=== PATIENT | female | born 1995 | race African-American/Black ===

== ENCOUNTER 2017-04-17 16:29 | Emergency (ER) | payer MEDICAID, OTHER ==
[~2017-04-17] VITALS: Ht 170.2 cm; Wt 73.0 kg
[~2017-04-17 16:29] MED LIST: ALBU17I INH; CELE40TA PO; IBUP600 PO; METH36 PO; VENTAER INH
[2017-04-17 16:30] VITALS: BP 117/80; PULSE 85; RESP 13; TEMP 99; O2SAT 97
--- NOTE | 2017-04-17 17:44 | PD ---
HPI . Generalized abdominal pain Chief Complaint: Abdominal Pain Time Seen by Provider: 17:28 Travel History International Travel<30 days: No Contact w/Intl Traveler<30days: No Traveled to known affect area: No History of Present Illness HPI Patient presents complaining with a 2 day history of generalized abdominal pain. It is rated 5/10 and has no modifying factors. It is associated with some nausea. No vomiting or diarrhea. She has had a subjective fever. She denies any urinary tract symptoms such as dysuria, frequency or urgency. She is also complaining with amenorrhea since February. She states that she has taken several home test and some have been positive while others have been negative. PFSH Past Medical History Asthma: Yes Cancer: No Developmental Delay: No Diabetes: No Diminished Hearing: No Psychiatric: Yes Respiratory: Yes (ASTHMA) Immunizations Current: Yes Seizures: No Thyroid Disease: No Ulcer: No ?: Unknown LMP: 03/10/17 Past Surgical History Ear Surgery: Yes Tonsillectomy: Yes (ADNOIDS) Tympanostomy Tube: Yes Social History Alcohol Use: No Tobacco Use: No Substance Use: No Allergies-Medications (Allergen,Severity, Reaction): Coded Allergies: No Known Allergies (Verified , 07/26/15) Reported Meds & Prescriptions Reported Meds & Active Scripts Active Motrin 600 Mg Tab (Ibuprofen) 600 Mg Tab 600 Mg PO Q6H PRN Concerta (Methylphenidate HCl) 36 Mg Tabcr 36 Mg PO DAILY Concerta (Methylphenidate HCl) 36 Mg Tabcr 36 Mg PO DAILY Celexa (Citalopram Hydrobromide) 40 Mg Tab 40 Mg PO 1/2TAB PO QD X7D Proventil Mdi (Albuterol Sulfate) 17 Gm Aero 2 Puff INH Q4HPRN Reported Ventolin Hfa (Albuterol Sulfate) 18 Gm Aero 2 Puff INH Q4HPRN * SHAKE WELL BEFORE USE * Review of Systems Except as stated in HPI: all other systems reviewed are Neg General / Constitutional: Positive: Fever, Chills Gastrointestinal: Positive: Nausea, Abdominal Pain, No: Vomiting, Diarrhea Genitourinary: Positive: Other (amenorrhea), No: Urgency, Frequency, Dysuria Physical Exam Narrative GENERAL: This patient is awake and alert and does not appear to be in any distress. SKIN: warm/dry. HEAD: Normocephalic. Atraumatic. EYES: Pupils equal and round. No scleral icterus. No injection or drainage. ENT: No nasal bleeding or discharge. Mucous membranes pink and moist. NECK: Trachea midline. Full range of motion without pain.. CARDIOVASCULAR: Regular rate and rhythm. Heart sounds normal. RESPIRATORY: No accessory muscle use. Clear to auscultation. Breath sounds equal bilaterally. GASTROINTESTINAL: Abdomen soft. Nontender. Bowel sounds present. Abdomen does appear to be distended. I do not feel a suprapubic mass. MUSCULOSKELETAL: No obvious deformities. NEUROLOGICAL: Awake and alert. No obvious cranial nerve deficits. Motor grossly within normal limits. Normal speech. PSYCHIATRIC: Appropriate mood and affect; insight and judgment normal. Data Data Last Documented VS Vital Signs Date Time Temp Pulse Resp B/P (MAP) Pulse Ox O2 Delivery O2 Flow Rate FiO2 04/17/17 16:30 99.0 85 13 117/80 (92) 97 Orders Orders Basic Metabolic Panel (Bmp) (04/17/17 17:34) Complete Blood Count With Diff (04/17/17 17:34) Urinalysis - C+S If Indicated (04/17/17 17:34) Iv Access Insert/Monitor (04/17/17 17:34) Morphine Inj (Morphine Inj) (04/17/17 17:45) Ondansetron Inj (Zofran Inj) (04/17/17 17:45) Sodium Chloride 0.9% Flush (Ns Flush) (04/17/17 17:45) Ed Urine Pregnancytest Poc (04/17/17 17:34) Ed Poc Ultrasound (04/17/17 17:34) Labs Laboratory Tests Test 04/17/17 17:50 White Blood Count 5.3 TH/MM3 Red Blood Count 4.11 MIL/MM3 Hemoglobin 12.5 GM/DL Hematocrit 37.6 % Mean Corpuscular Volume 91.5 FL Mean Corpuscular Hemoglobin 30.3 PG Mean Corpuscular Hemoglobin Concent 33.1 % Red Cell Distribution Width 12.3 % Platelet Count 242 TH/MM3 Mean Platelet Volume 9.7 FL Neutrophils (%) (Auto) 34.0 % Lymphocytes (%) (Auto) 51.8 % Monocytes (%) (Auto) 10.5 % Eosinophils (%) (Auto) 3.3 % Basophils (%) (Auto) 0.4 % Neutrophils # (Auto) 1.8 TH/MM3 Lymphocytes # (Auto) 2.7 TH/MM3 Monocytes # (Auto) 0.6 TH/MM3 Eosinophils # (Auto) 0.2 TH/MM3 Basophils # (Auto) 0.0 TH/MM3 CBC Comment DIFF FINAL Differential Comment Urine Color YELLOW Urine Turbidity CLEAR Urine pH 5.5 Urine Specific [place] 1.024 Urine Protein NEG mg/dL Urine Glucose (UA) NEG mg/dL Urine Ketones NEG mg/dL Urine Occult Blood NEG Urine Nitrite NEG Urine Bilirubin NEG Urine Urobilinogen LESS THAN 2.0 MG/DL Urine Leukocyte Esterase NEG Urine WBC 1 /hpf Urine Squamous Epithelial Cells 2 /hpf Urine Mucus FEW /lpf Microscopic Urinalysis Comment CULT NOT INDICATED Blood Urea Nitrogen 15 MG/DL Creatinine 0.66 MG/DL Random Glucose 70 MG/DL Calcium Level 8.9 MG/DL Sodium Level 139 MEQ/L Potassium Level 4.0 MEQ/L Chloride Level 106 MEQ/L Carbon Dioxide Level 26.9 MEQ/L Anion Gap 6 MEQ/L Estimat Glomerular Filtration Rate 138 ML/MIN [facility] Medical Decision Making Medical Screen Exam Complete: Yes Emergency Medical Condition: Yes Differential Diagnosis Differential diagnosis of abdominal pain includes but is not limited to gastritis, pancreatitis, hepatitis, gastroenteritis, gallbladder disease, constipation, urinary retention, UTI, peptic ulcer disease, diverticulitis or appendicitis Narrative Course This patient presents with generalized abdominal pain associated with nausea. She is also reporting a 2 month history of amenorrhea. test is negative. UA is negative. CBC & BMP Diagram 04/17/17 17:50 Calcium Level 8.9 The history, exam, diagnostic testing, and current condition do not suggest any significant pathology to warrant further testing, continued ED treatment, admission, or surgical evaluation at this point. No EMC was found. The patient 's condition is stable and appropriate for discharge. Procedures Procedure Narrative Emergency Department Pelvic ultrasound was performed with patient consent. The curvilinear probe was used in the transverse and sagittal views within the suprapubic region revealing no intrauterine . Diagnosis Primary Impression: Abdominal pain Qualified Codes: R10.84 - Generalized abdominal pain Patient Instructions: Abdominal Pain (ED), General Instructions Additional Instructions: See your primary care physician for further evaluation is needed. Disposition: 01 DISCHARGE HOME Condition: Stable Maren Hedrick MD Apr 17, 2017 17:44
[2017-04-17] MEDS ORDERED: ONDANSETRON HCL 4 MG/2 ML VIAL IVP ONE (17:45)
[2017-04-17] MEDS ORDERED: MORPHINE SULFATE 4 MG/ML INJ IV PUSH ONE (17:45)
[2017-04-17] MEDS ORDERED: SODIUM CHLORIDE 0.9% FLUSH 10 ML FLUSH IV FLUSH PRN (17:45)
[2017-04-17 18:21] LABS: BLOOD, URINE NEG (NEG); COMMENT (UR) CULT NOT INDICATED; CULTURE IF INDICATED CULT NOT INDICATED; GLUCOSE,URINE NEG (NEG); KETONE, URINE NEG (NEG); MUCUS URINE FEW /lpf (OCC); NITRITE,URINE NEG (NEG); PH, URINE 5.5 (5.0-8.5); SQUAMOUS EPITHELIAL CELL URINE 2 /hpf (0-5); URINE COLOR YELLOW (YELLW/STRAW)
[2017-04-17 18:26] LABS: AUTOMATED NEUTROPHIL # 1.8 TH/MM3 (1.8-7.7); BASOPHIL % 0.4 % (0.0-2.0); EOSINOPHIL # 0.2 TH/MM3 (0-0.4); EOSINOPHIL % 3.3 % (0.0-4.0); HEMATOCRIT 37.6 % (35.0-46.0); HEMO FLAGS DIFF FINAL; LYMPH % 51.8 % (9.0-44.0); LYMPHOCYTE # 2.7 TH/MM3 (1.0-4.8); MEAN CELL VOLUME 91.5 FL (80.0-100.0); MEAN CORPUSCULAR HEMOGLOBIN 30.3 PG (27.0-34.0); MEAN CORPUSCULAR HGB CONC 33.1 % (32.0-36.0); MONO % 10.5 % (0.0-8.0); PLATELET COUNT 242 TH/MM3 (150-450); RED BLOOD COUNT 4.11 MIL/MM3 (4.00-5.30); RED CELL DISTRIBUTION WIDTH 12.3 % (11.6-17.2); WHITE BLOOD COUNT 5.3 TH/MM3 (4.0-11.0)
[2017-04-17 18:47] LABS: BICARBONATE 26.9 MEQ/L (21.0-32.0)
== END 2017-04-17 19:37 | disposition home or self-care (01) ==
LOC: NEPD 16:29
DX: R10.84 Generalized abdominal pain (principal)
CPT/HCPCS: 80048; 81001; 84703; 85025; 96374; 96375; 99285; J2270; J2405

== ENCOUNTER 2017-06-14 00:34 | Emergency (ER) | payer OTHER, MEDICAID ==
[~2017-06-14] VITALS: Ht 170.2 cm; Wt 73.0 kg
[2017-06-14 00:43] VITALS: BP 149/100; PULSE 90; RESP 20; TEMP 99; O2SAT 100
[2017-06-14] MEDS ORDERED: SODIUM CHLOR 0.9% 1000 ML INJ 1,000 ML IV SCH (01:15)
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
[2017-06-14 02:07] LABS: AUTOMATED NEUTROPHIL # 6.5 TH/MM3 (1.8-7.7); BASOPHIL # 0.1 TH/MM3 (0-0.2); BASOPHIL % 0.7 % (0.0-2.0); EOSINOPHIL # 0.3 TH/MM3 (0-0.4); EOSINOPHIL % 3.2 % (0.0-4.0); HEMATOCRIT 35.6 % (35.0-46.0); HEMO FLAGS DIFF FINAL; LYMPH % 21.2 % (9.0-44.0); MEAN CELL VOLUME 90.1 FL (80.0-100.0); MEAN CORPUSCULAR HEMOGLOBIN 30.4 PG (27.0-34.0); MEAN CORPUSCULAR HGB CONC 33.8 % (32.0-36.0); MONO % 5.8 % (0.0-8.0); NEUT % 69.1 % (16.0-70.0); PLATELET COUNT 245 TH/MM3 (150-450); RED BLOOD COUNT 3.95 MIL/MM3 (4.00-5.30); RED CELL DISTRIBUTION WIDTH 12.5 % (11.6-17.2); WHITE BLOOD COUNT 9.4 TH/MM3 (4.0-11.0)
[2017-06-14 02:27] LABS: ALT (GPT) 26 U/L (9-42); ANION GAP 7 MEQ/L (5-15); AST (GOT) 16 U/L (16-38); BICARBONATE 25.6 MEQ/L (21.0-32.0); BLOOD UREA NITROGEN 21 MG/DL (7-18); CHLORIDE 107 MEQ/L (98-107); GLOMERULAR FILTRATION RATE 157 ML/MIN (>89); POTASSIUM 3.9 MEQ/L (3.5-5.1); SODIUM (NA) 140 MEQ/L (136-145)
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
[2017-06-14 02:29] LABS: ALKALINE PHOSPHATASE 75 U/L (45-117); TOTAL BILIRUBIN ADULT 0.2 MG/DL (0.2-1.0)
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
[2017-06-14 02:35] LABS: PROTHROMBIN TIME - PATIENT 10.5 SEC (9.8-11.6)
[2017-06-14 03:00] VITALS: BP 123/75; PULSE 82; RESP 18; O2SAT 99
[2017-06-14 03:08] LABS: BACTERIA, URINE RARE /hpf; BLOOD, URINE NEG (NEG); COMMENT (UR) CULT NOT INDICATED; CULTURE IF INDICATED CULT NOT INDICATED; GLUCOSE,URINE NEG (NEG); KETONE, URINE 10 mg/dL (NEG); MUCUS URINE FEW /lpf (OCC); NITRITE,URINE NEG (NEG); SQUAMOUS EPITHELIAL CELL URINE 2 /hpf (0-5); URINE COLOR YELLOW (YELLW/STRAW)
[2017-06-14] MEDS ORDERED: CYCL5TAB PO (03:22)
[2017-06-14] MEDS ORDERED: ACETAMINOPHEN/HYDROcodone 325 MG/5 MG TAB PO ONE (03:30)
== END 2017-06-14 04:10 | disposition home or self-care (01) ==
LOC: NEPE 00:34
DX: S93.401A Sprain of unspecified ligament of right ankle, initial encounter (principal); M25.532 Pain in left wrist; M54.2 Cervicalgia; J45.909 Unspecified asthma, uncomplicated; R56.9 Unspecified convulsions; V43.62XA Car passenger injured in collision with other type car in traffic accident, initial encounter
CPT/HCPCS: 70450; 71010; 72125; 72170; 73110; 73590; 73610; 80053; 81001; 84703; 85025; 85610; 85730; 96360; 99285; E0113; J7030; L1906; L3908

== ENCOUNTER 2017-07-18 22:21 | Emergency (ER) | payer MEDICAID ==
[~2017-07-18] VITALS: Ht 172.7 cm; Wt 75.0 kg
[~2017-07-18 22:21] MED LIST changes: -ALBU17I INH; -CELE40TA PO; +CYCL5TAB PO; -IBUP600 PO; -METH36 PO; -VENTAER INH
[2017-07-18 22:23] VITALS: BP 123/80; PULSE 90; RESP 20; TEMP 98.7; O2SAT 98
[2017-07-18] MEDS ORDERED: PENICILLIN V POTASSIUM 500 MG TAB PO ONE (22:45)
[2017-07-18] MEDS ORDERED: DEXAMETHASONE 4 MG TAB PO ONE (22:45)
[2017-07-18] MEDS ORDERED: NAPROXEN 500 MG TAB PO ONE (22:45)
[2017-07-18] MEDS ORDERED: PENI500T PO (22:48)
[2017-07-18] MEDS ORDERED: NAPR500T2 PO (22:48)
--- NOTE | 2017-07-18 22:49 | PD ---
HPI Chief Complaint: Oral / Dental Pain or Problem Time Seen by Provider: 22:32 Travel History International Travel<30 days: No Contact w/Intl Traveler<30days: No Traveled to known affect area: No History of Present Illness HPI So 22 year-old woman presents emergent from of left sided tooth pain, swelling, some drainage, some facial swelling, and pain. Pain radiates to the left ear. She has or with Center coming in and feels tenderness there. States she continues to low but of drainage from the area. Feels like there is a knot there. History Past Medical History Medical History: Denies Significant Hx Tetanus Vaccination: Unknown Influenza Vaccination: No LMP: 06/11/17 Social History Alcohol Use: No Tobacco Use: No Allergies-Medications (Allergen,Severity, Reaction): Coded Allergies: aspirin (Unverified Adverse Reaction, Severe, Swelling, 07/18/17) "MY THROAT SWELLED UP" Reported Meds & Prescriptions Reported Meds & Active Scripts Active Flexeril (Cyclobenzaprine HCl) 5 Mg Tab 5 Mg PO TID PRN Review of Systems Except as stated in HPI: all other systems reviewed are Neg Physical Exam Narrative GENERAL: Well-appearing 22 year-old woman, no acute distress. SKIN: Focused skin assessment warm/dry. HEAD: Atraumatic. Normocephalic. EYES: Pupils equal and round. No scleral icterus. No injection or drainage. ENT: No nasal bleeding or discharge. Mucous membranes pink and moist. Good dentition. Dentures in place. On the left lower third molar, only partially visible, no purulent drainage. There is tenderness to percussion there. Some tenderness in the soft tissues also. No discrete palpable abscess. A little bit of facial swelling. TMs normal bilaterally. NECK: Trachea midline. Minimal tender adenopathy. Data Data Last Documented VS Vital Signs Date Time Temp Pulse Resp B/P (MAP) Pulse Ox O2 Delivery O2 Flow Rate FiO2 07/18/17 22:23 98.7 90 20 123/80 (94) 98 Room Air Orders Orders Naproxen (Naprosyn) (07/18/17 22:45) Penicillin V Potassium (Veetids) (07/18/17 22:45) Dexamethasone (Decadron) (07/18/17 22:45) MDM Medical Decision Making Medical Screen Exam Complete: Yes Emergency Medical Condition: Yes Differential Diagnosis Odontalgia, apical abscess, facial infection, other Narrative Course Medical decision making 22 year-old woman presents to the ED with left-sided facial tenderness, appears to have odontogenic pain and infection. Later follow-up with dentistry. Recommend steroids NSAIDs antibiotics. Diagnosis Primary Impression: Pain, dental Additional Instructions: Take anabiotic cyst prescribed. Take naproxen as needed for pain. Follow-up with your dentist in the next one to 2 days for repeat evaluation. Return to the emergency department for any new or worsening symptoms. Med/Other Pt SpecificInfo: Prescription(s) given Scripts Penicillin V Potassium (Penicillin V Potassium) 500 Mg Tab 500 MG PO Q8H for Infection for 10 Days, #30 TAB 0 Refills Prov: Chaz Gtz MD 07/18/17 Naproxen (Naproxen) 500 Mg Tab 500 MG PO BID, #20 TAB 0 Refills Prov: Chaz Gtz MD 07/18/17 Disposition: 01 DISCHARGE HOME Condition: Stable Chaz Gtz MD Jul 18, 2017 22:49
== END 2017-07-18 22:56 | disposition home or self-care (01) ==
LOC: NEPD 22:21
DX: K08.89 Other specified disorders of teeth and supporting structures (principal); Z88.6 Allergy status to analgesic agent; Z79.899 Other long term (current) drug therapy
CPT/HCPCS: 99284; J8540

== ENCOUNTER 2017-11-23 09:11 | Emergency (ER) | payer MEDICAID ==
[~2017-11-23] VITALS: Ht 170.2 cm; Wt 75.0 kg
[~2017-11-23 09:11] MED LIST changes: +NAPR500T2 PO; +PENI500T PO
[2017-11-23 09:16] VITALS: BP 123/71; PULSE 85; RESP 20; TEMP 97.9; O2SAT 100
[2017-11-23] MEDS ORDERED: VENTAER INH (09:26)
--- NOTE | 2017-11-23 10:07 | PD ---
HPI Chief Complaint: Chest Pain Time Seen by Provider: 09:36 Travel History International Travel<30 days: No Contact w/Intl Traveler<30days: No Traveled to known affect area: No History of Present Illness HPI Patient presents to the emergency department complaining of chest pain and headache. States the last time this happened was last Wednesday and she had recurrence of the symptoms today. Headache is described as being on the left side with blurry vision and some photophobia. She denies rash, neck pain, states that the left side feels weak. Chest pain started while she was at work : Described as being left-sided, intermittent, 1 hour in duration, nonradiating , alleviated somewhat when she "calms down", no aggravating factors. Multiple deaths in the family over the past few months which is causing stress to the patient. She reports subjective fever, cough, nausea, but denies chills, vomiting, edema, recent travel. Last menstrual period was last month. PFSH Past Medical History Asthma: Yes Cancer: No Cardiovascular Problems: No Developmental Delay: No Diabetes: No Diminished Hearing: No Psychiatric: Yes Respiratory: Yes Immunizations Current: Yes Seizures: Yes Thyroid Disease: No Ulcer: No ?: Unknown LMP: 10/10/17 Past Surgical History Ear Surgery: Yes Tonsillectomy: Yes (ADNOIDS) Tympanostomy Tube: Yes Family History Family Myocardial Infarction: Yes Social History Alcohol Use: No Tobacco Use: No Substance Use: No Allergies-Medications (Allergen,Severity, Reaction): Coded Allergies: prochlorperazine (Verified Allergy, Intermediate, Confusion, 11/23/17) aspirin (Unverified Adverse Reaction, Severe, Swelling, 07/18/17) "MY THROAT SWELLED UP" Reported Meds & Prescriptions Reported Meds & Active Scripts Active Reported Ventolin Hfa 18 GM Inh (Albuterol Sulfate) 90 Mcg/Act Aer 2 Puff INH Q4-6H PRN Review of Systems Except as stated in HPI: all other systems reviewed are Neg Physical Exam Narrative GENERAL: No acute distress. SKIN: Focused skin assessment warm/dry. HEAD: Atraumatic. Normocephalic. EYES: Ocular muscles intact bilaterally. No scleral icterus. No injection or drainage. ENT: No nasal bleeding or discharge. Mucous membranes pink and moist. NECK: Trachea midline. No JVD. Supple, full range of motion. CARDIOVASCULAR: Regular rate and rhythm. No murmur appreciated. Left chest wall tender to palpation (reproducible pain). RESPIRATORY: No accessory muscle use. Clear to auscultation. Breath sounds equal bilaterally. GASTROINTESTINAL: Abdomen soft, non-tender, nondistended. Hepatic and splenic margins not palpable. MUSCULOSKELETAL: No obvious deformities. No clubbing. No cyanosis. No edema. NEUROLOGICAL: Awake and alert. No obvious cranial nerve deficits. Motor grossly within normal limits. Normal speech. PSYCHIATRIC: Appropriate mood and affect; insight and judgment normal. Data Data Last Documented VS Vital Signs Date Time Temp Pulse Resp B/P (MAP) Pulse Ox O2 Delivery O2 Flow Rate FiO2 11/23/17 11:03 64 15 124/86 (99) 99 Room Air 11/23/17 09:16 97.9 Orders Orders Complete Blood Count With Diff (11/23/17 10:01) Comprehensive Metabolic Panel (11/23/17 10:01) Chest, Single Ap (11/23/17 10:01) Ct Brain W/O Iv Contrast(Rout) (11/23/17 10:01) Iv Access Insert/Monitor (11/23/17 10:01) Ecg Monitoring (11/23/17 10:01) Oximetry (11/23/17 10:01) Ed Urine Pregnancytest Poc (11/23/17 10:01) Electrocardiogram (11/23/17 10:01) Ckmb (Isoenzyme) Profile (11/23/17 10:01) D-Dimer (11/23/17 10:01) Prothrombin Time / Inr (Pt) (11/23/17 10:01) Act Partial Throm Time (Ptt) (11/23/17 10:01) Troponin I (11/23/17 10:01) Prochlorperazine Inj (Compazine Inj) (11/23/17 10:15) Sodium Chlor 0.9% 1000 Ml Inj (Ns 1000 M (11/23/17 10:15) Diphenhydramine Inj (Benadryl Inj) (11/23/17 11:00) CKMB (11/23/17 09:37) CKMB% (11/23/17 09:37) Ed Discharge Order (11/23/17 12:28) Labs Laboratory Tests Test 11/23/17 09:37 White Blood Count 5.3 TH/MM3 Red Blood Count 4.29 MIL/MM3 Hemoglobin 12.3 GM/DL Hematocrit 37.9 % Mean Corpuscular Volume 88.5 FL Mean Corpuscular Hemoglobin 28.6 PG Mean Corpuscular Hemoglobin Concent 32.3 % Red Cell Distribution Width 12.9 % Platelet Count 299 TH/MM3 Mean Platelet Volume 9.6 FL Neutrophils (%) (Auto) 44.1 % Lymphocytes (%) (Auto) 42.0 % Monocytes (%) (Auto) 8.2 % Eosinophils (%) (Auto) 4.6 % Basophils (%) (Auto) 1.1 % Neutrophils # (Auto) 2.3 TH/MM3 Lymphocytes # (Auto) 2.2 TH/MM3 Monocytes # (Auto) 0.4 TH/MM3 Eosinophils # (Auto) 0.2 TH/MM3 Basophils # (Auto) 0.1 TH/MM3 CBC Comment DIFF FINAL Differential Comment Prothrombin Time 10.3 SEC Prothromb Time International Ratio 1.0 RATIO Activated Partial Thromboplast Time 26.0 SEC D-Dimer Quantitative (PE/DVT) LESS THAN 0.19 MG/L FEU Blood Urea Nitrogen 14 MG/DL Creatinine 0.74 MG/DL Random Glucose 69 MG/DL Total Protein 7.9 GM/DL Albumin 4.1 GM/DL Calcium Level 8.9 MG/DL Alkaline Phosphatase 63 U/L Aspartate Amino Transf (AST/SGOT) 43 U/L Alanine Aminotransferase (ALT/SGPT) 27 U/L Total Bilirubin 0.4 MG/DL Sodium Level 139 MEQ/L Potassium Level 4.8 MEQ/L Chloride Level 107 MEQ/L Carbon Dioxide Level 25.8 MEQ/L Anion Gap 6 MEQ/L Estimat Glomerular Filtration Rate 121 ML/MIN Total Creatine Kinase 155 U/L Creatine Kinase MB LESS THAN 0.5 NG/ML Troponin I LESS THAN 0.02 NG/ML MDM Medical Decision Making Medical Screen Exam Complete: Yes Emergency Medical Condition: Yes Interpretation(s) ECG: SR, rate 84, LAE Labs: wnl Last Impressions Head CT 11/23/17 1001 Signed Impressions: Service Date/Time: Thursday, November 23, 2017 10:26 - CONCLUSION: Normal examination. Cristino Edwards MD Chest X-Ray 11/23/17 1001 Signed Impressions: Service Date/Time: Thursday, November 23, 2017 10:04 - CONCLUSION: Normal examination. Cristino Edwards MD Differential Diagnosis Intracranial abnormality, migraine headache, ACS, musculoskeletal chest pain, PE Narrative Course Patient presents to the emergency department complaining of headache and chest pain we will check head CT, urine , CBC, chemistry, cardiac enzymes, coags and d-dimer, chest x-ray, EKG. Will give patient a liter of fluids and 10 mg IV Compazine. 1100: Patient received Compazine and said that she felt flushed and short of breath. Given Benadryl 25 mg IV. No tongue or facial swelling or rash. Patient declined Toradol for pain. Attempted to speak patient's primary care physician at [facility], but was transferred to an answering machine. 1230: Patient reports feeling better, states she just needs to get some rest. Diagnosis Primary Impression: Chest pain Qualified Codes: R07.9 - Chest pain, unspecified Additional Impression: Headache Qualified Codes: R51 - Headache Patient Instructions: Acute Headache (ED), Chest Pain (ED), General Instructions Departure Forms: Tests/Procedures, Work Release Enter return to work date: November 25, 2017 Additional Instructions: 1. Follow-up with primary care doctor in 24-48 hours. 2. Tylenol Motrin as needed for headache and/or chest pain. 3. Return to the emergency department immediately for fever, vomiting, shortness of breath, chest pain that responded to medication, numbness or tingling, slurred speech, abnormal gait, or for any new/worsening/worsening symptoms. Disposition: 01 DISCHARGE HOME Condition: Stable Denice Courtney MD November 23, 2017 10:07
[2017-11-23] MEDS ORDERED: PROCHLORPERAZINE INJ 10 MG/2 ML VIAL IV PUSH ONE (10:15)
[2017-11-23] MEDS ORDERED: SODIUM CHLOR 0.9% 1000 ML INJ 1,000 ML IV ONE (10:15)
[2017-11-23 10:19] LABS: AUTOMATED NEUTROPHIL # 2.3 TH/MM3 (1.8-7.7); BASOPHIL # 0.1 TH/MM3 (0-0.2); BASOPHIL % 1.1 % (0.0-2.0); EOSINOPHIL # 0.2 TH/MM3 (0-0.4); EOSINOPHIL % 4.6 % (0.0-4.0); HEMATOCRIT 37.9 % (35.0-46.0); HEMOGLOBIN 12.3 GM/DL (11.6-15.3); LYMPHOCYTE # 2.2 TH/MM3 (1.0-4.8); MEAN CELL VOLUME 88.5 FL (80.0-100.0); MEAN CORPUSCULAR HEMOGLOBIN 28.6 PG (27.0-34.0); MEAN CORPUSCULAR HGB CONC 32.3 % (32.0-36.0); MEAN PLATELET VOLUME 9.6 FL (7.0-11.0); MONO % 8.2 % (0.0-8.0); MONOCYTE # 0.4 TH/MM3 (0-0.9); NEUT % 44.1 % (16.0-70.0); PLATELET COUNT 299 TH/MM3 (150-450); RED BLOOD COUNT 4.29 MIL/MM3 (4.00-5.30); RED CELL DISTRIBUTION WIDTH 12.9 % (11.6-17.2); WHITE BLOOD COUNT 5.3 TH/MM3 (4.0-11.0)
--- NOTE | 2017-11-23 10:24 | RADRPT ---
EXAM DATE/TIME: 11/23/2017 10:04 [facility] COMPARISON: CHEST SINGLE AP, June 14, 2017, 1:25. INDICATIONS : Left upper chest pain radiating into left shoulder. MEDICAL HISTORY : Asthma SURGICAL HISTORY : None. ENCOUNTER: Initial ACUITY: 2 days PAIN SCORE: 8/10 LOCATION: Left chest FINDINGS: A single view of the chest demonstrates the lungs to be symmetrically aerated without evidence of mas s, infiltrate or effusion. The cardiomediastinal contours are unremarkable. Osseous structures are intact. CONCLUSION: Normal examination. Cristino Edwards MD on November 23, 2017 at 10:21 Board Certified Radiologist. This report was verified electronically.
[2017-11-23 10:31] LABS: PROTHROMBIN TIME - PATIENT 10.3 SEC (9.8-11.6)
[2017-11-23 10:32] LABS: D-DIMER LESS THAN 0.19 MG/L FEU (0.00-0.50)
--- NOTE | 2017-11-23 10:37 | RADRPT ---
EXAM DATE/TIME: 11/23/2017 10:26 [facility] COMPARISON: CT BRAIN W/O CONTRAST, June 14, 2017, 2:07. INDICATIONS : Headache, now left side of body feels weaker RADIATION DOSE: 35.34 CTDIvol (mGy) MEDICAL HISTORY : Seizures. SURGICAL HISTORY : None. ENCOUNTER: Initial ACUITY: 1 day PAIN SCALE: 5/10 LOCATION: cranial TECHNIQUE: Multiple contiguous axial images were obtained of the head. Using automated exposure control and adj ustment of the mA and/or kV according to patient size, radiation dose was kept as low as reasonably a chievable to obtain optimal diagnostic quality images. DICOM format image data is available electro nically for review and comparison. FINDINGS: CEREBRUM: The ventricles are normal for age. No evidence of midline shift, mass lesion, hemorrhage or acute in farction. No extra-axial fluid collections are seen. POSTERIOR FOSSA: The cerebellum and brainstem are intact. The 4th ventricle is midline. The cerebellopontine angle i s unremarkable. EXTRACRANIAL: The visualized portion of the orbits is intact. SKULL: The calvaria is intact. No evidence of skull fracture. CONCLUSION: Normal examination. Cristino Edwards MD on November 23, 2017 at 10:35 Board Certified Radiologist. This report was verified electronically.
[2017-11-23] MEDS ORDERED: diphenhydrAMINE HCL 50 MG/ML VIAL IV PUSH ONE (11:00)
[2017-11-23 11:03] VITALS: BP 124/86; PULSE 64; RESP 15; O2SAT 99
[2017-11-23 11:09] LABS: BLOOD UREA NITROGEN 14 MG/DL (7-18)
[2017-11-23 11:10] LABS: ALBUMIN 4.1 GM/DL (3.4-5.0); ALKALINE PHOSPHATASE 63 U/L (45-117); ALT (GPT) 27 U/L (9-42); AST (GOT) 43 U/L (16-38); CALCIUM 8.9 MG/DL (8.5-10.1); CREATININE 0.74 MG/DL (0.50-1.00); GLOMERULAR FILTRATION RATE 121 ML/MIN (>89); GLUCOSE,RANDOM 69 MG/DL (74-106); SODIUM (NA) 139 MEQ/L (136-145); TOTAL BILIRUBIN ADULT 0.4 MG/DL (0.2-1.0); TOTAL PROTEIN 7.9 GM/DL (6.4-8.2)
[2017-11-23 11:11] LABS: BICARBONATE 25.8 MEQ/L (21.0-32.0); CHLORIDE 107 MEQ/L (98-107); TROPONIN I LESS THAN 0.02 NG/ML (0.02-0.05)
--- NOTE | 2017-11-23 18:16 | EKG ---
Date Performed: 11/23/2017 Time Performed: 09:35:44 PTAGE: 22 years EKG: Sinus rhythm WITH SINUS ARRHYTHMIA POSSIBLE LEFT ATRIAL ENLARGEMENT BORDERLINE ECG PREVIOUS TRACING 07/27/12 @ 23.44 Since the previous tracing, no significant change note d DOCTOR: Raya Mi Interpretating Date/Time 11/23/2017 18:14:34
[2017-11-26] MEDS ORDERED: TOPI25 PO (11:33)
== END 2017-11-23 12:51 | disposition home or self-care (01) ==
LOC: NEPE 09:11
DX: R07.89 Other chest pain (principal); R51 Headache; J45.909 Unspecified asthma, uncomplicated
CPT/HCPCS: 70450; 71045; 80053; 82550; 82552; 84484; 84703; 85025; 85379; 85610; 85730; 93005; 96374; 96375; 99284; J0780; J1200; J7030

== ENCOUNTER 2017-11-25 08:30 | Observation (INO) | END 2017-11-26 17:46 | disposition home or self-care (01) | DX: R53.1 Weakness (principal); G43.109 Migraine with aura, not intractable, without status migrainosus; G40.909 Epilepsy, unspecified, not intractable, without status epilepticus; R06.02 Shortness of breath; R29.810 Facial weakness; H53.2 Diplopia; T43.3X5A Adverse effect of phenothiazine antipsychotics and neuroleptics, initial encounter; J45.909 Unspecified asthma, uncomplicated; R42 Dizziness and giddiness; M79.605 Pain in left leg; M79.602 Pain in left arm | CPT/HCPCS: 70450; 70551; 80053; 80307; 82550; 85025; 95819; 96374; 96375; 99285; G0378; J0515; J1200; J2060 ==

== ENCOUNTER 2017-11-26 16:43 | Emergency (ER) | END 2017-11-26 20:18 | disposition home or self-care (01) | DX: R42 Dizziness and giddiness (principal) ==